=== PATIENT | female | born 1960 | race Caucasian/White ===

== ENCOUNTER 2016-12-07 12:21 | Emergency (ER) | payer MEDICAID ==
[~2016-12-07] VITALS: Ht 157.5 cm; Wt 64.0 kg
[~2016-12-07 12:21] MED LIST: CARI350T21; LISIPOW
[2016-12-07 14:06] VITALS: BP 138/91
[2016-12-07] MEDS ORDERED: cefTRIAXone SOD 1,000 MG VL IM ONE (14:45)
[2016-12-07] MEDS ORDERED: HYDROcodone-ACET 5/325MG TAB PO ONE (14:45)
== END 2016-12-07 14:51 | disposition home or self-care (01) ==
LOC: ER 12:21
DX: K04.7 Periapical abscess without sinus (principal); F17.210 Nicotine dependence, cigarettes, uncomplicated; M19.90 Unspecified osteoarthritis, unspecified site
CPT/HCPCS: 96372; 99283; J0696

== ENCOUNTER 2017-02-08 20:36 | Emergency (ER) | payer MEDICAID ==
[~2017-02-08] VITALS: Ht 157.5 cm; Wt 64.9 kg
[2017-02-08 22:10] VITALS: BP 135/84
[2017-02-09] MEDS ORDERED: methylPREDNISolone SOD SUCC 125 MG/2 ML VL IM ONE (00:15)
[2017-02-09] MEDS ORDERED: diphenhdrAMINE HCL 25 MG CAP PO ONE (00:15)
== END 2017-02-09 00:35 | disposition home or self-care (01) ==
LOC: ER 20:36
DX: T78.40XA Allergy, unspecified, initial encounter (principal); M19.90 Unspecified osteoarthritis, unspecified site; F17.210 Nicotine dependence, cigarettes, uncomplicated
CPT/HCPCS: 96372; 99283; J2930

== ENCOUNTER 2017-03-15 09:12 | Emergency (ER) | payer MEDICAID ==
[~2017-03-15] VITALS: Ht 157.5 cm; Wt 63.5 kg
[2017-03-15 09:35] VITALS: BP 120/80
== END 2017-03-15 10:28 | disposition left against medical advice (07) ==
LOC: ER 09:12
DX: R11.2 Nausea with vomiting, unspecified (principal); R10.30 Lower abdominal pain, unspecified; Z53.21 Procedure and treatment not carried out due to patient leaving prior to being seen by health care provider
CPT/HCPCS: 93005

== ENCOUNTER 2017-08-10 02:07 | Emergency (ER) | payer MEDICAID ==
[~2017-08-10] VITALS: Ht 157.5 cm; Wt 64.4 kg
[~2017-08-10 02:07] MED LIST changes: +CARI-316; -CARI350T21
[2017-08-10 02:30] VITALS: BP 167/91
[2017-08-10] MEDS ORDERED: KETOROLAC TROMETH 60MG/2ML VIAL IM ONE (02:45)
== END 2017-08-10 03:29 | disposition home or self-care (01) ==
LOC: ER 02:09
DX: S10.93XA Contusion of unspecified part of neck, initial encounter (principal); F17.210 Nicotine dependence, cigarettes, uncomplicated; M19.90 Unspecified osteoarthritis, unspecified site; W22.8XXA Striking against or struck by other objects, initial encounter; Y93.89 Activity, other specified; Y99.8 Other external cause status; Y92.89 Other specified places as the place of occurrence of the external cause
CPT/HCPCS: 96372; 99283; J1885

== ENCOUNTER 2017-08-31 18:30 | Emergency (ER) | payer MEDICAID ==
[2017-08-31 19:00] VITALS: BP 152/82
[2017-08-31] MEDS ORDERED: HYDROcodone-ACET 10/325MG TAB ONE (20:21)
[2017-08-31] MEDS ORDERED: KETOROLAC TROMETH 30 MG/ML 1ML VIAL ONE (20:22)
[2017-08-31] MEDS ORDERED: KETOROLAC TROMETH 30 MG/ML 1ML VIAL IM ONE (20:30)
[2017-08-31] MEDS ORDERED: HYDROcodone-ACET 10/325MG TAB PO ONE (20:30)
== END 2017-08-31 21:19 | disposition home or self-care (01) ==
LOC: ER 18:32
DX: M25.442 Effusion, left hand (principal); F17.210 Nicotine dependence, cigarettes, uncomplicated; I10 Essential (primary) hypertension; M19.90 Unspecified osteoarthritis, unspecified site; W11.XXXA Fall on and from ladder, initial encounter; Y93.89 Activity, other specified; Y99.8 Other external cause status; Y92.89 Other specified places as the place of occurrence of the external cause
CPT/HCPCS: 73120; 99284; J1885

== ENCOUNTER 2018-02-27 16:50 | Emergency (ER) | payer MEDICAID ==
[~2018-02-27] VITALS: Ht 157.5 cm; Wt 61.2 kg
[2018-02-27 17:10] VITALS: BP 122/65
== END 2018-02-27 20:08 | disposition home or self-care (01) ==
LOC: ER 17:06
DX: F41.9 Anxiety disorder, unspecified (principal); G89.29 Other chronic pain; M19.90 Unspecified osteoarthritis, unspecified site; I10 Essential (primary) hypertension

== ENCOUNTER 2018-07-03 17:32 | Emergency (ER) | payer MEDICAID ==
[~2018-07-03] VITALS: Ht 157.5 cm; Wt 63.0 kg
[2018-07-03 17:56] VITALS: BP 166/84
[2018-07-03] MEDS ORDERED: diphenhdrAMINE HCL 50 MG/1 ML VL IM ONE (19:00)
[2018-07-03] MEDS ORDERED: methylPREDNISolone SOD SUCC 125 MG/2 ML VL IM ONE ×2 (19:15→19:30)
== END 2018-07-03 19:46 | disposition home or self-care (01) ==
LOC: ER 17:44
DX: S60.562A Insect bite (nonvenomous) of left hand, initial encounter (principal); I10 Essential (primary) hypertension; F17.210 Nicotine dependence, cigarettes, uncomplicated; Z79.899 Other long term (current) drug therapy; W57.XXXA Bitten or stung by nonvenomous insect and other nonvenomous arthropods, initial encounter; Y93.89 Activity, other specified; Y99.8 Other external cause status; Y92.89 Other specified places as the place of occurrence of the external cause
CPT/HCPCS: 96372; 99284; J1200; J2930

== ENCOUNTER 2018-07-06 03:28 | Emergency (ER) | payer MEDICAID ==
[~2018-07-06] VITALS: Ht 157.5 cm; Wt 63.0 kg
[2018-07-06 09:50] VITALS: BP 153/83
== END 2018-07-06 11:30 | disposition home or self-care (01) ==
LOC: ER 03:28
DX: S60.562A Insect bite (nonvenomous) of left hand, initial encounter (principal); F17.210 Nicotine dependence, cigarettes, uncomplicated; I10 Essential (primary) hypertension; M19.90 Unspecified osteoarthritis, unspecified site; W57.XXXA Bitten or stung by nonvenomous insect and other nonvenomous arthropods, initial encounter; Y93.89 Activity, other specified; Y99.8 Other external cause status; Y92.89 Other specified places as the place of occurrence of the external cause

== ENCOUNTER 2018-10-16 20:39 | Emergency (ER) | payer MEDICAID ==
[~2018-10-16] VITALS: Ht 157.5 cm; Wt 61.2 kg
[~2018-10-16 20:39] MED LIST changes: -CARI-316; +CARI350T22
[2018-10-16 21:17] LABS: Basophils # (auto) 0.1 uL; Basophils % (auto) 1.5 % (0.0-2.0); Eosinophils # (auto) 0.2 uL; Eosinophils % (auto) 3.2 % (0.0-7.0); Hematocrit 40.1 % (36.0-46.0); Hemoglobin 13.9 g/dL (12.2-16.2); Lymphocytes # (auto) 3.2 uL; Lymphocytes % (auto) 44.4 % (10.0-50.0); Mean Corpuscular Hemoglobin 33.4 pg (28.0-32.0); Mean Corpuscular Hgb Conc. 34.7 g/dL (32.0-36.0); Mean Corpuscular Volume 96.3 fL (80.0-100.0); Monocytes # (auto) 0.6 uL; Neutrophils % (auto) 42.9 % (37.0-80.0); Nucleated Red Blood Cells % 0.1 %; Platelet Count (auto) 327 10^3/uL (140-450); Red Blood Cells 4.16 10^6/uL (4.0-5.20); Red Cell Distribution Width 12.3 % (11.8-14.3); White Blood Cell 7.1 10^3/uL (4.4-10.8)
[2018-10-16 21:31] LABS: Albumin 3.5 g/dL (3.4-5.0); Anion Gap 5 (5-15); Blood Urea Nitrogen 13 mg/dL (7-18); Calcium 8.4 mg/dL (8.5-10.1); Carbon Dioxide 29 mmol/L (21-32); Chloride 106 mmol/L (98-107); Glucose 99 mg/dL (74-106); Potassium 3.7 mmol/L (3.5-5.1); Sodium 140 mmol/L (136-145)
[2018-10-16 21:33] LABS: Alanine Aminotransferase 21 U/L (13-56); Aspartate Aminotransferase 19 U/L (15-37); BUN/Creatinine Ratio 19.4; GFR African American 115 mL/min; GFR Non-African American 95 mL/min
[2018-10-16 21:38] LABS: Alkaline Phosphatase 95 U/L (45-117); Bilirubin, Total 0.4 mg/dL (0.2-1.0)
[2018-10-17 01:26] LABS: INR 0.96 (0.9-1.15); Partial Thromboplastin Time 25.5 sec (23.78-33.04); Prothrombin Time 10.3 sec (9.27-12.13)
[2018-10-17 01:39] VITALS: BP 114/58
[2018-10-17] MEDS ORDERED: IOHEXOL 350 MG/ML 100ML IJ ONE (02:06)
== END 2018-10-17 03:20 | disposition home or self-care (01) ==
LOC: ER 20:39
DX: R07.9 Chest pain, unspecified (principal); K21.9 Gastro-esophageal reflux disease without esophagitis; I10 Essential (primary) hypertension; F17.210 Nicotine dependence, cigarettes, uncomplicated; J45.909 Unspecified asthma, uncomplicated
CPT/HCPCS: 36415; 71045; 71275; 80053; 83880; 84484; 85025; 85379; 85610; 85730; 93005; 99284; Q9967

== ENCOUNTER 2019-04-01 10:07 | Emergency (ER) | payer MEDICAID ==
[~2019-04-01] VITALS: Ht 157.5 cm; Wt 62.1 kg
[2019-04-01 10:57] VITALS: BP 119/84
[2019-04-01] MEDS ORDERED: IBUPROFEN 800 MG TAB PO ONE (11:45)
== END 2019-04-01 12:16 | disposition home or self-care (01) ==
LOC: ER 10:07
DX: S61.011A Laceration without foreign body of right thumb without damage to nail, initial encounter (principal); I10 Essential (primary) hypertension; F17.210 Nicotine dependence, cigarettes, uncomplicated; R42 Dizziness and giddiness; R51 Headache; W45.8XXA Other foreign body or object entering through skin, initial encounter; Y93.89 Activity, other specified; Y92.89 Other specified places as the place of occurrence of the external cause; Y99.8 Other external cause status
CPT/HCPCS: 12001

== ENCOUNTER 2019-07-18 01:15 | Emergency (ER) | payer MEDICAID ==
[~2019-07-18] VITALS: Ht 157.5 cm; Wt 61.2 kg
[2019-07-18 01:33] VITALS: BP 127/76
== END 2019-07-18 04:45 | disposition left against medical advice (07) ==
LOC: ER 01:15
DX: S90.861A Insect bite (nonvenomous), right foot, initial encounter (principal); Z53.21 Procedure and treatment not carried out due to patient leaving prior to being seen by health care provider; W57.XXXA Bitten or stung by nonvenomous insect and other nonvenomous arthropods, initial encounter; Y93.89 Activity, other specified; Y92.89 Other specified places as the place of occurrence of the external cause; Y99.8 Other external cause status

== ENCOUNTER 2019-11-23 22:12 | Emergency (ER) | payer MEDICAID ==
[~2019-11-23] VITALS: Ht 157.5 cm; Wt 59.0 kg
[2019-11-23] MEDS ORDERED: ONDANSETRON ODT 4 MG TAB PO ONE (23:15)
[2019-11-24 00:05] LABS: Basophils # (auto) 0 uL; Basophils % (auto) 0.8 % (0.0-2.0); Eosinophils # (auto) 0.1 uL; Eosinophils % (auto) 1.5 % (0.0-7.0); Hematocrit 41.4 % (36.0-46.0); Hemoglobin 14.5 g/dL (12.2-16.2); Lymphocytes # (auto) 0.7 uL; Lymphocytes % (auto) 13.6 % (10.0-50.0); Mean Corpuscular Hemoglobin 33.1 pg (28.0-32.0); Mean Corpuscular Volume 94.8 fL (80.0-100.0); Monocytes # (auto) 0.3 uL; Monocytes % (auto) 6.9 % (0.0-12.0); Neutrophils # (auto) 3.9 uL; Neutrophils % (auto) 77.2 % (37.0-80.0); Platelet Count (auto) 262 10^3/uL (140-450); Red Blood Cells 4.37 10^6/uL (4.0-5.20); Red Cell Distribution Width 12.8 % (11.8-14.3)
[2019-11-24] MEDS ORDERED: MORPHINE SULFATE 4 MG/ML SYR/VIAL IV ONE (00:15)
[2019-11-24] MEDS ORDERED: ONDANSETRON HCL 4 MG/2 ML VIAL IV ONE (00:15)
[2019-11-24 00:28] LABS: Albumin 3.3 g/dL (3.4-5.0); BUN/Creatinine Ratio 17.2; Calcium 8.2 mg/dL (8.5-10.1); Potassium 3.8 mmol/L (3.5-5.1)
[2019-11-24 00:31] LABS: Total Protein 7.1 g/dL (6.4-8.2)
[2019-11-24 02:00] VITALS: BP 127/76
[2019-11-24] MEDS ORDERED: MORPHINE SULF INJ 2 MG/ML SYRINGE 1ML IV ONE (03:00)
== END 2019-11-24 03:35 | disposition other institution (70) ==
LOC: ER 22:15
DX: N20.0 Calculus of kidney (principal); K57.30 Diverticulosis of large intestine without perforation or abscess without bleeding; I10 Essential (primary) hypertension; F17.210 Nicotine dependence, cigarettes, uncomplicated; Z79.899 Other long term (current) drug therapy
CPT/HCPCS: 36415; 74176; 80053; 83690; 85025; 93005; 96374; 96375; 96376; 99284; J2270; J2405; Q0162

== ENCOUNTER 2019-11-26 00:50 | Emergency (ER) | payer MEDICAID ==
[~2019-11-26] VITALS: Ht 157.5 cm; Wt 59.0 kg
[2019-11-26 02:01] LABS: Basophils # (auto) 0.1 uL; Basophils % (auto) 1.1 % (0.0-2.0); Eosinophils # (auto) 0.3 uL; Eosinophils % (auto) 3.9 % (0.0-7.0); Hemoglobin 14.7 g/dL (12.2-16.2); Lymphocytes # (auto) 2.6 uL; Lymphocytes % (auto) 36.3 % (10.0-50.0); Mean Corpuscular Hemoglobin 33.7 pg (28.0-32.0); Mean Corpuscular Hgb Conc. 35.1 g/dL (32.0-36.0); Mean Corpuscular Volume 95.9 fL (80.0-100.0); Monocytes # (auto) 0.7 uL; Monocytes % (auto) 10.1 % (0.0-12.0); Neutrophils # (auto) 3.5 uL; Neutrophils % (auto) 48.6 % (37.0-80.0); Platelet Count (auto) 314 10^3/uL (140-450); Red Blood Cells 4.38 10^6/uL (4.0-5.20); Red Cell Distribution Width 13.1 % (11.8-14.3); White Blood Cell 7.2 10^3/uL (4.4-10.8)
[2019-11-26 02:19] LABS: Albumin 3.5 g/dL (3.4-5.0); BUN/Creatinine Ratio 23.4; Calcium 8.6 mg/dL (8.5-10.1); Potassium 3.9 mmol/L (3.5-5.1)
[2019-11-26 02:23] LABS: Bilirubin, Total 0.2 mg/dL (0.2-1.0); Total Protein 7.6 g/dL (6.4-8.2)
[2019-11-26 03:21] LABS: Urine Bacteria MOD /hpf (None Seen); Urine Blood Negative /uL (Negative); Urine Mucus FEW (None Seen); Urine Specific Gravity 1.017 (1.001-1.035); Urine WBC 80 /hpf (0 - 5); Urine WBC Clumps PRESENT /hpf (None Seen)
[2019-11-26 07:40] VITALS: BP 120/61
== END 2019-11-26 08:18 | disposition home or self-care (01) ==
LOC: ER 00:52
DX: F41.9 Anxiety disorder, unspecified (principal); R10.9 Unspecified abdominal pain; R11.2 Nausea with vomiting, unspecified; R53.83 Other fatigue; M19.90 Unspecified osteoarthritis, unspecified site; I10 Essential (primary) hypertension
CPT/HCPCS: 36415; 80053; 81001; 82150; 83690; 85025

== ENCOUNTER 2020-07-20 19:53 | Emergency (ER) | payer MEDICAID ==
[~2020-07-20] VITALS: Ht 157.5 cm; Wt 65.8 kg
[2020-07-21] MEDS ORDERED: SODIUM CHLORIDE 0.9% 1,000 ML IV ONE ×2 (04:00→08:30)
[2020-07-21 04:33] LABS: Basophils # (auto) 0.1 10 ^3/uL (0-0.2); Eosinophils # (auto) 0.2 10 ^3/uL (0-0.8); Lymphocytes # (auto) 3.4 10 ^3/uL (0.4-5.4); Monocytes # (auto) 0.6 10 ^3/uL (0-1.3); Nucleated Red Blood Cells % 0.1 %
[2020-07-21 04:35] LABS: Basophils % (auto) 1.3 % (0.0-2.0); Eosinophils % (auto) 2.9 % (0.0-7.0); Hematocrit 39.1 % (36.0-46.0); Hemoglobin 13.6 g/dL (12.2-16.2); Lymphocytes % (auto) 44.5 % (10.0-50.0); Mean Corpuscular Hemoglobin 34.2 pg (28.0-32.0); Mean Corpuscular Hgb Conc. 34.7 g/dL (32.0-36.0); Mean Corpuscular Volume 98.6 fL (80.0-100.0); Monocytes % (auto) 7.5 % (0.0-12.0); Neutrophils # (auto) 3.3 10 ^3/uL (1.6-8.6); Neutrophils % (auto) 43.8 % (37.0-80.0); Platelet Count (auto) 268 10^3/uL (140-450); Red Blood Cells 3.97 10^6/uL (4.0-5.20); Red Cell Distribution Width 13.6 % (11.8-14.3); White Blood Cell 7.6 10^3/uL (4.4-10.8)
[2020-07-21 04:51] LABS: Albumin 3.3 g/dL (3.4-5.0); Calcium 7.8 mg/dL (8.5-10.1); Potassium 3.4 mmol/L (3.5-5.1)
[2020-07-21 04:54] LABS: BUN/Creatinine Ratio 20.8; Bilirubin, Total 0.7 mg/dL (0.2-1.0); Total Protein 6.4 g/dL (6.4-8.2)
[2020-07-21 06:59] LABS: Urine Bacteria FEW /hpf (None Seen); Urine Blood Negative /uL (Negative); Urine Mucus FEW (None Seen); Urine WBC 8 /hpf (0 - 5)
[2020-07-21 07:10] LABS: Alcohol, Urine < 3.0 mg/dL (0-10); Amphetamine Screen, Urine POSITIVE (NEGATIVE); Barbiturate Scree,Urine NEGATIVE (NEGATIVE); Benzodiazephine Screen, Urine NEGATIVE (NEGATIVE); Cannabinoid Screen, Urine NEGATIVE (NEGATIVE)
[2020-07-21 07:25] LABS: Cocaine Screen, Urine NEGATIVE (NEGATIVE); Opiate Scree,Urine NEGATIVE (NEGATIVE); Phencyclidine Screen, Urine NEGATIVE (NEGATIVE)
[2020-07-21] MEDS ORDERED: ONDANSETRON HCL 4 MG/2 ML VIAL IV ONE (08:30)
[2020-07-21] MEDS ORDERED: KETOROLAC TROMETH 30 MG/ML 1ML VIAL IV ONE ×2 (08:30)
[2020-07-21] MEDS ORDERED: TAMSULOSIN HYDROCHLORIDE 0.4 MG CAP PO ONE (08:30)
[2020-07-21] MEDS ORDERED: cloNIDine HCL 0.1 MG TAB PO ONE (08:30)
[2020-07-21 09:36] VITALS: BP 127/68
== END 2020-07-21 10:34 | disposition home or self-care (01) ==
LOC: ER 19:53
DX: N20.0 Calculus of kidney (principal); E86.0 Dehydration; F41.9 Anxiety disorder, unspecified; F15.10 Other stimulant abuse, uncomplicated; I10 Essential (primary) hypertension; M19.90 Unspecified osteoarthritis, unspecified site; F17.210 Nicotine dependence, cigarettes, uncomplicated; Z98.890 Other specified postprocedural states; Z79.899 Other long term (current) drug therapy
CPT/HCPCS: 36415; 74018; 74176; 80053; 80307; 81001; 82150; 83690; 85025; 96361; 96374; 96375; 99285; J1885; J2405; J7030

== ENCOUNTER → 2020-08-01 | Emergency (ER) | payer MEDICAID ==
[~2020-08-01] VITALS: Ht 157.5 cm; Wt 65.8 kg
[~2020-08-01] MED LIST changes: +KETOROLAC TROMETH 30 MG/ML 1ML VIAL IV ONE; +ONDANSETRON HCL 4 MG/2 ML VIAL IV ONE; +SODIUM CHLORIDE 0.9% 1,000 ML IV ONE; +TAMSULOSIN HYDROCHLORIDE 0.4 MG CAP PO ONE
[2020-08-01 21:21] LABS: Basophils # (auto) 0.1 10 ^3/uL (0-0.2); Basophils % (auto) 1.4 % (0.0-2.0); Eosinophils # (auto) 0.3 10 ^3/uL (0-0.8); Eosinophils % (auto) 3.9 % (0.0-7.0); Hematocrit 41.1 % (36.0-46.0); Hemoglobin 13.8 g/dL (12.2-16.2); Lymphocytes # (auto) 2.9 10 ^3/uL (0.4-5.4); Lymphocytes % (auto) 40.8 % (10.0-50.0); Mean Corpuscular Hemoglobin 33.6 pg (28.0-32.0); Mean Corpuscular Hgb Conc. 33.7 g/dL (32.0-36.0); Mean Corpuscular Volume 99.7 fL (80.0-100.0); Monocytes # (auto) 0.5 10 ^3/uL (0-1.3); Monocytes % (auto) 7.2 % (0.0-12.0); Neutrophils # (auto) 3.4 10 ^3/uL (1.6-8.6); Neutrophils % (auto) 46.7 % (37.0-80.0); Nucleated Red Blood Cells % 0.2 %; Platelet Count (auto) 270 10^3/uL (140-450); Red Blood Cells 4.12 10^6/uL (4.0-5.20); Red Cell Distribution Width 14.2 % (11.8-14.3); White Blood Cell 7.2 10^3/uL (4.4-10.8)
[2020-08-01 21:43] LABS: Albumin 3.6 g/dL (3.4-5.0); Calcium 8.7 mg/dL (8.5-10.1); Potassium 3.6 mmol/L (3.5-5.1)
[2020-08-01 21:46] LABS: BUN/Creatinine Ratio 29.9; Bilirubin, Total 0.4 mg/dL (0.2-1.0); Total Protein 6.8 g/dL (6.4-8.2)
[2020-08-02 01:05] VITALS: BP 162/81
== END | disposition home or self-care (01) ==
LOC: ER 20:41
DX: N20.0 Calculus of kidney (principal); F17.210 Nicotine dependence, cigarettes, uncomplicated; I10 Essential (primary) hypertension; Z79.899 Other long term (current) drug therapy
CPT/HCPCS: 36415; 74176; 80053; 85025; 96361; 96374; 96375; 99284; J1885; J2405; J7030

== ENCOUNTER 2020-08-09 16:44 | Emergency (ER) | payer MEDICAID ==
[~2020-08-09] VITALS: Ht 157.5 cm; Wt 63.5 kg
[~2020-08-09 16:44] MED LIST changes: -KETOROLAC TROMETH 30 MG/ML 1ML VIAL IV ONE; -ONDANSETRON HCL 4 MG/2 ML VIAL IV ONE; -SODIUM CHLORIDE 0.9% 1,000 ML IV ONE; -TAMSULOSIN HYDROCHLORIDE 0.4 MG CAP PO ONE
[2020-08-09] MEDS ORDERED: KETOROLAC TROMETH 30 MG/ML 1ML VIAL IV ONE (17:00)
[2020-08-09] MEDS ORDERED: SODIUM CHLORIDE 0.9% 1,000 ML IVB ONE (17:00)
[2020-08-09] MEDS ORDERED: MORPHINE SULFATE 4 MG/ML SYR/VIAL IV ONE ×2 (17:00→20:00)
[2020-08-09] MEDS ORDERED: ONDANSETRON HCL 4 MG/2 ML VIAL IV ONE ×2 (17:00→20:00)
[2020-08-09 17:39] LABS: Urine Bacteria NONE SEEN /hpf (None Seen); Urine Blood Negative /uL (Negative); Urine Specific Gravity 1.017 (1.001-1.035); Urine WBC 4 /hpf (0 - 5)
[2020-08-09 17:56] LABS: Basophils # (auto) 0.1 10 ^3/uL (0-0.2); Eosinophils # (auto) 0.2 10 ^3/uL (0-0.8); Nucleated Red Blood Cells % 0.1 %; Red Cell Distribution Width 14.2 % (11.8-14.3)
[2020-08-09 17:59] LABS: Basophils % (auto) 2.1 % (0.0-2.0); Eosinophils % (auto) 4.1 % (0.0-7.0); Hematocrit 41.5 % (36.0-46.0); Hemoglobin 14.9 g/dL (12.2-16.2); Lymphocytes # (auto) 2.2 10 ^3/uL (0.4-5.4); Lymphocytes % (auto) 46.3 % (10.0-50.0); Mean Corpuscular Hemoglobin 35.3 pg (28.0-32.0); Mean Corpuscular Hgb Conc. 35.8 g/dL (32.0-36.0); Mean Corpuscular Volume 98.5 fL (80.0-100.0); Monocytes # (auto) 0.3 10 ^3/uL (0-1.3); Monocytes % (auto) 6.8 % (0.0-12.0); Neutrophils % (auto) 40.7 % (37.0-80.0); Platelet Count (auto) 293 10^3/uL (140-450); Red Blood Cells 4.21 10^6/uL (4.0-5.20); White Blood Cell 4.9 10^3/uL (4.4-10.8)
[2020-08-09 18:14] LABS: Albumin 3.5 g/dL (3.4-5.0); Calcium 8.9 mg/dL (8.5-10.1); Potassium 3.8 mmol/L (3.5-5.1)
[2020-08-09 18:17] LABS: BUN/Creatinine Ratio 26.2; Bilirubin, Total 0.4 mg/dL (0.2-1.0); Total Protein 7.1 g/dL (6.4-8.2)
[2020-08-09 21:00] VITALS: BP 155/87
== END 2020-08-09 21:20 | disposition home or self-care (01) ==
LOC: ER 16:44
DX: M54.5 Low back pain (principal); F17.210 Nicotine dependence, cigarettes, uncomplicated; I10 Essential (primary) hypertension; F32.9 Major depressive disorder, single episode, unspecified
CPT/HCPCS: 36415; 74176; 80053; 81001; 83690; 85025; 96361; 96374; 96375; 96376; 99285; J1885; J2270; J2405; J7030

== ENCOUNTER 2020-08-13 11:36 | Emergency (ER) | payer MEDICAID ==
[~2020-08-13] VITALS: Ht 157.5 cm; Wt 63.5 kg
[2020-08-13 11:46] VITALS: BP 140/103
[2020-08-13] MEDS ORDERED: PROMETHAZINE HCL 25 MG/ML 1ML IM ONE (13:00)
== END 2020-08-13 13:24 | disposition home or self-care (01) ==
LOC: ER 11:36
DX: R11.2 Nausea with vomiting, unspecified (principal); N20.0 Calculus of kidney; F17.210 Nicotine dependence, cigarettes, uncomplicated; I10 Essential (primary) hypertension
CPT/HCPCS: 96372; 99283; J2550

== ENCOUNTER 2020-08-30 14:09 | Emergency (ER) | payer MEDICAID ==
[~2020-08-30] VITALS: Ht 157.5 cm; Wt 65.8 kg
[2020-08-30] MEDS ORDERED: MORPHINE SULFATE 4 MG/ML SYR/VIAL IV ONE (14:30)
[2020-08-30] MEDS ORDERED: KETOROLAC TROMETH 30 MG/ML 1ML VIAL IV ONE (14:30)
[2020-08-30] MEDS ORDERED: ONDANSETRON HCL 4 MG/2 ML VIAL IV ONE (14:30)
[2020-08-30] MEDS ORDERED: SODIUM CHLORIDE 0.9% 1,000 ML IVB ONE (14:30)
[2020-08-30 14:50] LABS: Urine Bacteria NONE SEEN /hpf (None Seen); Urine Blood Negative /uL (Negative); Urine Specific Gravity 1.028 (1.001-1.035); Urine WBC 7 /hpf (0 - 5)
[2020-08-30 15:41] LABS: Basophils # (auto) 0.1 10 ^3/uL (0-0.2); Basophils % (auto) 1.7 % (0.0-2.0); Eosinophils # (auto) 0.2 10 ^3/uL (0-0.8); Eosinophils % (auto) 3.4 % (0.0-7.0); Monocytes # (auto) 0.5 10 ^3/uL (0-1.3); Neutrophils % (auto) 48.1 % (37.0-80.0)
[2020-08-30 15:43] LABS: Hemoglobin 13.1 g/dL (12.2-16.2); Lymphocytes # (auto) 2.8 10 ^3/uL (0.4-5.4); Lymphocytes % (auto) 39.5 % (10.0-50.0); Mean Corpuscular Hemoglobin 34.9 pg (28.0-32.0); Mean Corpuscular Hgb Conc. 34.5 g/dL (32.0-36.0); Mean Corpuscular Volume 101.3 fL (80.0-100.0); Monocytes % (auto) 7.3 % (0.0-12.0); Neutrophils # (auto) 3.4 10 ^3/uL (1.6-8.6); Platelet Count (auto) 320 10^3/uL (140-450); Red Blood Cells 3.75 10^6/uL (4.0-5.20); Red Cell Distribution Width 13.2 % (11.8-14.3); White Blood Cell 7.1 10^3/uL (4.4-10.8)
[2020-08-30 15:57] VITALS: BP 97/56
[2020-08-30 16:00] LABS: Potassium 4.1 mmol/L (3.5-5.1)
[2020-08-30 16:07] LABS: Albumin 3.8 g/dL (3.4-5.0); BUN/Creatinine Ratio 31.2; Bilirubin, Total 0.4 mg/dL (0.2-1.0); Calcium 9.1 mg/dL (8.5-10.1); Total Protein 7.1 g/dL (6.4-8.2)
== END 2020-08-30 16:53 | disposition home or self-care (01) ==
LOC: ER 14:10
DX: N39.0 Urinary tract infection, site not specified (principal); F17.210 Nicotine dependence, cigarettes, uncomplicated
CPT/HCPCS: 36415; 74176; 80053; 81001; 83690; 85025; 96361; 96374; 96375; 99284; J1885; J2270; J2405; J7030

== ENCOUNTER 2020-09-27 13:25 | Emergency (ER) | payer MEDICAID ==
[~2020-09-27] VITALS: Ht 157.5 cm; Wt 63.5 kg
[2020-09-27 13:56] VITALS: BP 135/85
== END 2020-09-27 14:03 | disposition home or self-care (01) ==
LOC: ER 13:25
DX: F41.9 Anxiety disorder, unspecified (principal); F17.210 Nicotine dependence, cigarettes, uncomplicated; I10 Essential (primary) hypertension; Z87.442 Personal history of urinary calculi

== ENCOUNTER 2020-11-09 17:08 | Emergency (ER) | payer MEDICAID ==
[~2020-11-09] VITALS: Ht 157.5 cm; Wt 64.0 kg
[2020-11-09 19:00] LABS: Basophils # (auto) 0.1 10 ^3/uL (0-0.2); Basophils % (auto) 0.6 % (0.0-2.0); Eosinophils # (auto) 0.2 10 ^3/uL (0-0.8); Eosinophils % (auto) 2.3 % (0.0-7.0); Hematocrit 35.4 % (36.0-46.0); Hemoglobin 12.1 g/dL (12.2-16.2); Lymphocytes # (auto) 2.1 10 ^3/uL (0.4-5.4); Lymphocytes % (auto) 24.7 % (10.0-50.0); Mean Corpuscular Hemoglobin 32.5 pg (28.0-32.0); Mean Corpuscular Hgb Conc. 34.3 g/dL (32.0-36.0); Mean Corpuscular Volume 94.7 fL (80.0-100.0); Monocytes # (auto) 0.6 10 ^3/uL (0-1.3); Monocytes % (auto) 6.6 % (0.0-12.0); Neutrophils # (auto) 5.5 10 ^3/uL (1.6-8.6); Neutrophils % (auto) 65.8 % (37.0-80.0); Platelet Count (auto) 287 10^3/uL (140-450); Red Blood Cells 3.74 10^6/uL (4.0-5.20); Red Cell Distribution Width 12.9 % (11.8-14.3); White Blood Cell 8.4 10^3/uL (4.4-10.8)
[2020-11-09 19:16] LABS: Urine Bacteria NONE SEEN /hpf (None Seen); Urine Blood Negative /uL (Negative); Urine Specific Gravity 1.011 (1.001-1.035); Urine WBC 2 /hpf (0 - 5)
[2020-11-09 19:24] LABS: Albumin 3.7 g/dL (3.4-5.0); Anion Gap 8 (5-15); Blood Urea Nitrogen 12 mg/dL (7-18); Calcium 8.6 mg/dL (8.5-10.1); Carbon Dioxide 25 mmol/L (21-32); Chloride 106 mmol/L (98-107); Glucose 124 mg/dL (74-106); Lipase 138 U/L (73-393); Magnesium 1.8 mg/dL (1.6-2.6); Potassium 3.7 mmol/L (3.5-5.1); Sodium 139 mmol/L (136-145)
[2020-11-09 19:26] LABS: Alanine Aminotransferase 23 U/L (13-56); Aspartate Aminotransferase 17 U/L (15-37); BUN/Creatinine Ratio 16.4; GFR African American 104 mL/min; GFR Non-African American 86 mL/min
[2020-11-09 19:30] LABS: Amphetamine Screen, Urine NEGATIVE (NEGATIVE); Barbiturate Scree,Urine NEGATIVE (NEGATIVE); Benzodiazephine Screen, Urine NEGATIVE (NEGATIVE); Cannabinoid Screen, Urine NEGATIVE (NEGATIVE); Cocaine Screen, Urine NEGATIVE (NEGATIVE); Opiate Scree,Urine POSITIVE (NEGATIVE); Phencyclidine Screen, Urine NEGATIVE (NEGATIVE)
[2020-11-09 19:31] LABS: Alkaline Phosphatase 88 U/L (45-117); Bilirubin, Total 0.3 mg/dL (0.2-1.0)
[2020-11-09] MEDS ORDERED: ACETAMINOPHEN/CODEINE#3 (300/30mg) TAB PO ONE (21:45)
[2020-11-09] MEDS ORDERED: ONDANSETRON ODT 4 MG TAB PO ONE (21:45)
[2020-11-09 23:33] VITALS: BP 133/74
== END 2020-11-09 23:41 | disposition home or self-care (01) ==
LOC: ER 17:08
DX: N20.0 Calculus of kidney (principal); K57.92 Diverticulitis of intestine, part unspecified, without perforation or abscess without bleeding; D64.9 Anemia, unspecified
CPT/HCPCS: 36415; 74176; 80053; 80307; 81001; 83690; 83735; 84484; 85025

== ENCOUNTER 2021-11-29 10:00 | Emergency (ER) | payer MEDICAID ==
[~2021-11-29] VITALS: Ht 157.5 cm; Wt 63.5 kg
[2021-11-29 10:40] LABS: Basophils # (auto) 0.1 10 ^3/uL (0-0.2); Basophils % (auto) 1.4 % (0.0-2.0); Eosinophils # (auto) 0.1 10 ^3/uL (0-0.8); Eosinophils % (auto) 1.6 % (0.0-7.0); Hemoglobin 13.9 g/dL (12.2-16.2); Lymphocytes # (auto) 2.1 10 ^3/uL (0.4-5.4); Lymphocytes % (auto) 27.5 % (10.0-50.0); Mean Corpuscular Hemoglobin 34.6 pg (28.0-32.0); Mean Corpuscular Hgb Conc. 34.7 g/dL (32.0-36.0); Mean Corpuscular Volume 99.7 fL (80.0-100.0); Monocytes # (auto) 0.5 10 ^3/uL (0-1.3); Monocytes % (auto) 6.4 % (0.0-12.0); Neutrophils # (auto) 4.8 10 ^3/uL (1.6-8.6); Neutrophils % (auto) 63.1 % (37.0-80.0); Nucleated Red Blood Cells % 0.1 %; Red Blood Cells 4.01 10^6/uL (4.0-5.20); Red Cell Distribution Width 13.1 % (11.8-14.3); White Blood Cell 7.6 10^3/uL (4.4-10.8)
[2021-11-29 11:04] LABS: Potassium 3.4 mmol/L (3.5-5.1)
[2021-11-29 11:10] LABS: Albumin 3.3 g/dL (3.4-5.0); BUN/Creatinine Ratio 10.6; Calcium 8.4 mg/dL (8.5-10.1); Magnesium 1.7 mg/dL (1.6-2.6)
[2021-11-29 11:12] LABS: Bilirubin, Total 1.2 mg/dL (0.2-1.0); Total Protein 7.1 g/dL (6.4-8.2)
[2021-11-29] MEDS ORDERED: SODIUM CHLORIDE 0.9% 1,000 ML IV ONE (11:15)
[2021-11-29] MEDS ORDERED: SODIUM CHLORIDE 0.9% 500 ML IVB ONE (11:15)
[2021-11-29] MEDS ORDERED: MORPHINE SULFATE 4 MG/ML SYR/VIAL IV ONE (11:15)
[2021-11-29] MEDS ORDERED: METOCLOPRAMIDE HCL 5MG/ml INJ 2ml VIAL IV ONE (11:15)
[2021-11-29] MEDS ORDERED: IOHEXOL 300 MG/ML 100ML BOTTLE IJ ONE (11:20)
[2021-11-29 16:21] LABS: Urine Bacteria NONE SEEN /hpf (None Seen); Urine Blood Negative /uL (Negative); Urine Mucus FEW (None Seen); Urine WBC 4 /hpf (0 - 5)
[2021-11-29 16:25] LABS: Urine Specific Gravity > 1.050 (1.001-1.035)
[2021-11-29 16:33] LABS: Alcohol, Urine < 3.0 mg/dL (0-10); Amphetamine Screen, Urine POSITIVE (NEGATIVE); Barbiturate Scree,Urine NEGATIVE (NEGATIVE); Benzodiazephine Screen, Urine NEGATIVE (NEGATIVE); Cannabinoid Screen, Urine NEGATIVE (NEGATIVE); Cocaine Screen, Urine NEGATIVE (NEGATIVE); Opiate Scree,Urine POSITIVE (NEGATIVE); Phencyclidine Screen, Urine NEGATIVE (NEGATIVE)
[2021-11-29 17:00] VITALS: BP 142/73
== END 2021-11-29 17:05 | disposition home or self-care (01) ==
LOC: ER 10:00
DX: K44.9 Diaphragmatic hernia without obstruction or gangrene (principal); K21.9 Gastro-esophageal reflux disease without esophagitis; E87.6 Hypokalemia; F15.10 Other stimulant abuse, uncomplicated; I10 Essential (primary) hypertension; N20.0 Calculus of kidney; R11.2 Nausea with vomiting, unspecified; F17.210 Nicotine dependence, cigarettes, uncomplicated; Z79.899 Other long term (current) drug therapy
CPT/HCPCS: 36415; 71046; 74177; 80053; 80307; 81001; 82150; 83690; 83735; 85025; 96361; 96374; 96375; 99285; J2270; J2765; J7030; J7040; Q9967; 93005

== ENCOUNTER 2023-01-10 08:44 | Emergency (ER) | payer MEDICAID ==
[~2023-01-10] VITALS: Ht 157.5 cm; Wt 60.0 kg
[2023-01-10] MEDS ORDERED: cloNIDine HCL 0.1 MG TAB PO ONE (09:00)
[2023-01-10 10:24] VITALS: BP 147/97
[2023-01-10] MEDS ORDERED: ACET-1080 PO (10:41)
[2023-01-10] MEDS ORDERED: LISI20TA28 PO (10:41)
== END 2023-01-10 10:39 | disposition home or self-care (01) ==
LOC: ER 08:44
DX: S23.41XA Sprain of ribs, initial encounter (principal); I10 Essential (primary) hypertension; F17.210 Nicotine dependence, cigarettes, uncomplicated; Z79.899 Other long term (current) drug therapy; W18.39XA Other fall on same level, initial encounter; Y93.89 Activity, other specified; Y92.89 Other specified places as the place of occurrence of the external cause; Y99.8 Other external cause status
CPT/HCPCS: 71101

== ENCOUNTER 2024-06-03 08:56 | Emergency (ER) | payer BC, OTHER ==
[~2024-06-03] VITALS: Ht 157.5 cm; Wt 66.4 kg
[~2024-06-03 08:56] MED LIST changes: +ACET-1080 PO; +CARI-578; -CARI350T22; +LISI20TA56 PO
[2024-06-03 09:55] VITALS: BP 126/80; PULSE 105; RESP 18; TEMP 98.2; O2SAT 95
[2024-06-03] MEDS: NEOMYCIN-BACITRACIN-POLYM 15GM TOP OINT TOP ONE (11:09)
[2024-06-03] MEDS ORDERED: CEPH500C PO (11:19)
[2024-06-03] MEDS ORDERED: NAPR-746 PO (11:19)
[2024-06-03] MEDS: cefTRIAXone SOD 1,000 MG VL IM ONE (11:30)
[2024-06-03] MEDS: KETOROLAC TROMETH 30 MG/ML 1ML VIAL IM ONE (11:30)
== END 2024-06-03 12:00 | disposition home or self-care (01) ==
LOC: ER 08:56
DX: S61.212A Laceration without foreign body of right middle finger without damage to nail, initial encounter (principal); I10 Essential (primary) hypertension; E03.9 Hypothyroidism, unspecified; F17.210 Nicotine dependence, cigarettes, uncomplicated; Z87.442 Personal history of urinary calculi; Z98.890 Other specified postprocedural states; Z79.1 Long term (current) use of non-steroidal anti-inflammatories (NSAID); W18.39XA Other fall on same level, initial encounter; Y93.89 Activity, other specified; Y92.89 Other specified places as the place of occurrence of the external cause; Y99.8 Other external cause status
CPT/HCPCS: 12002; 73130; 96372; 99284; J0696; J1885